=== PATIENT | female | born 1990 | race Caucasian/White ===

== ENCOUNTER 2021-07-18 10:52 | Emergency (ER) | payer OTHER ==
[2021-07-18] MEDS ORDERED: Morphine 4 MG/ML VIAL ONE ×2 (11:06→12:58)
[2021-07-18] MEDS ORDERED: Ketorolac Tromethamine 30 MG/ML VIAL ONE (11:07)
[2021-07-18] MEDS ORDERED: Morphine 2 MG/ML VIAL ONE (11:07)
[2021-07-18] MEDS ORDERED: Boostrix 0.5 ML (Tdap) VIAL ONE (11:40)
[2021-07-18] MEDS ORDERED: Ondansetron PF 4 MG/2 ML Vial ONE ×2 (11:40→14:15)
== END 2021-07-18 15:33 ==
LOC: CSHERS 10:52
DX: S42.291A Other displaced fracture of upper end of right humerus, initial encounter for closed fracture (principal); S42.211A Unspecified displaced fracture of surgical neck of right humerus, initial encounter for closed fracture; S80.812A Abrasion, left lower leg, initial encounter; V80.010A Animal-rider injured by fall from or being thrown from horse in noncollision accident, initial encounter
CPT/HCPCS: 71045; 90471; 90715; 96374; 96375; 96376; G0390; J1885; J2270; J2405